=== PATIENT | male | born 1965 | race Two or more races ===

== ENCOUNTER 2023-05-21 12:05 | Emergency (ER) | payer BC, OTHER ==
[~2023-05-21] VITALS: Ht 172.7 cm; Wt 81.0 kg
[2023-05-21 13:15] VITALS: BP 144/63; PULSE 70; RESP 18; TEMP 98.3; O2SAT 97
[2023-05-21] MEDS ORDERED: IBUP-1456 PO ×3 (14:06→14:07)
[2023-05-21] MEDS ORDERED: METH-1182 PO ×3 (14:06→14:07)
== END 2023-05-21 14:11 | disposition home or self-care (01) ==
LOC: ER 12:05
DX: S16.1XXA Strain of muscle, fascia and tendon at neck level, initial encounter (principal); M50.323 Other cervical disc degeneration at C6-C7 level; V49.9XXA Car occupant (driver) (passenger) injured in unspecified traffic accident, initial encounter; Y93.I9 Activity, other involving external motion; Y92.89 Other specified places as the place of occurrence of the external cause; Y99.8 Other external cause status
CPT/HCPCS: 72040; 72070